=== PATIENT | female | born 1960 | race African-American/Black ===

== ENCOUNTER 2016-09-30 12:19 | Emergency (ER) | payer MEDICARE, MEDICAID ==
[~2016-09-30] VITALS: Ht 170.2 cm; Wt 85.6 kg
[~2016-09-30 12:19] MED LIST: FOLIC ACID1 MG PO; NAPROSYN500 MG PO; RHEUMATREX2.5 M1 PO; TEGRETOL OR; TOPAMAX100 MG OR; VITAMIN D31000 UNI1 PO
[2016-09-30 13:45] LABS: HEMATOCRIT 39.8 % (37.0-47.0); HEMOGLOBIN 12.2 g/dl (12.0-16.0); IMMATURE GRANULOCYTES 0.3 % (0.0-1.0); MEAN CELL VOLUME 93.9 fL CALC (80.0-100.0); MEAN CORPUSCULAR HGB 28.8 pG CALC (26.0-32.0); MEAN CORPUSCULAR HGB CONC 30.7 g/L CALC (32.0-36.0); NEUT# 5.03 thou/uL (2.00-7.15); RED BLOOD COUNT 4.24 mill/uL (4.20-5.60)
[2016-09-30 14:01] LABS: ALBUMIN 4.3 g/dL (3.2-5.0); ALKALINE PHOSPHATASE 78 u/l (38-126); ANION GAP 14 (6-22 (CALC)); BILIRUBIN, TOTAL 0.4 mg/dL (0.0-1.4); BUN 16 mg/dL (7-17); BUN/CREATININE RATIO 20 (12-20 (CALC)); CARBON DIOXIDE 23 mmol/l (22-30); CHLORIDE 111 mmol/l (95-108); CREATININE 0.8 mg/dL (0.5-1.0); GFR > 60 ML/MIN (>=60 (CALC)); GFR FOR AFR.AMER. > 60 ML/MIN (>=60 (CALC)); GLUCOSE 121 mg/dL (65-105); POTASSIUM 3.7 mmol/l (3.5-5.1); SGOT/AST 34 u/l (14-36); SGPT/ALT 48 u/l (9-52); SODIUM 144 mmol/l (137-146); TOTAL PROTEIN 7.8 g/dL (6.3-8.2)
[2016-09-30 14:18] LABS: MYOGLOBIN 91 ng/mL (0 - 62)
[2016-09-30 14:53] VITALS: BP 129/79
== END 2016-09-30 14:53 | disposition home or self-care (01) ==
LOC: ED 12:19
PROVIDERS: Emergency Medicine
PROC: 2W25X4Z Dressing of Back using Bandage (ICD-10-PCS; principal; 2016-09-30)
PROC: 2W2PX4Z Dressing of Left Upper Leg using Bandage (ICD-10-PCS; 2016-09-30)
DX: G40.909 Epilepsy, unspecified, not intractable, without status epilepticus (principal); T21.25XA Burn of second degree of buttock, initial encounter; X10.2XXA Contact with fats and cooking oils, initial encounter; Y93.G3 Activity, cooking and baking; Y92.000 Kitchen of unspecified non-institutional (private) residence as the place of occurrence of the external cause; R42 Dizziness and giddiness

== ENCOUNTER 2017-01-10 17:50 | Emergency (ER) | payer MEDICARE, MEDICAID ==
[~2017-01-10] VITALS: Ht 170.2 cm; Wt 86.0 kg
[2017-01-10 19:47] LABS: HEMATOCRIT 38.4 % (37.0-47.0); HEMOGLOBIN 11.8 g/dl (12.0-16.0); IMMATURE GRANULOCYTES 0.2 % (0.0-1.0); MEAN CELL VOLUME 92.5 fL CALC (80.0-100.0); MEAN CORPUSCULAR HGB 28.4 pG CALC (26.0-32.0); MEAN CORPUSCULAR HGB CONC 30.7 g/L CALC (32.0-36.0); NEUT# 3.68 thou/uL (2.00-7.15); RED BLOOD COUNT 4.15 mill/uL (4.20-5.60); RED CELL DISTRI WIDTH 14.7 % (11.5-15.5)
[2017-01-10 19:53] LABS: BARBITURATES NEGATIVE (NEGATIVE); COCAINE NEGATIVE (NEGATIVE); METHADONE NEGATIVE (NEGATIVE); OXCYCODONE NEGATIVE (NEGATIVE); TETRAHYDROCANNABIONOL NEGATIVE (NEGATIVE); TRICYLIC ANTIDEPRESSANTS NEGATIVE (NEGATIVE)
[2017-01-10 20:05] LABS: ALBUMIN 4.4 g/dL (3.2-5.0); ALKALINE PHOSPHATASE 80 u/l (38-126); ANION GAP 14 (6-22 (CALC)); BILIRUBIN, TOTAL 0.4 mg/dL (0.0-1.4); BUN 17 mg/dL (7-17); BUN/CREATININE RATIO 19 (12-20 (CALC)); CALCIUM 9.6 mg/dL (8.4-10.2); CARBON DIOXIDE 21 mmol/l (22-30); CHLORIDE 113 mmol/l (95-108); CREATININE 0.9 mg/dL (0.5-1.0); ETHYL ALCOHOL 0 mg/dl (0-30); GFR > 60 ML/MIN (>=60 (CALC)); GFR FOR AFR.AMER. > 60 ML/MIN (>=60 (CALC)); GLUCOSE 108 mg/dL (65-105); POTASSIUM 4.2 mmol/l (3.5-5.1); SGOT/AST 24 u/l (14-36); SGPT/ALT 33 u/l (9-52); SODIUM 144 mmol/l (137-146)
[2017-01-10 20:28] VITALS: BP 120/70
== END 2017-01-10 20:38 | disposition home or self-care (01) ==
LOC: ED 17:50
PROVIDERS: Emergency Medicine
DX: G40.409 Other generalized epilepsy and epileptic syndromes, not intractable, without status epilepticus (principal); M25.561 Pain in right knee

== ENCOUNTER 2017-06-20 07:35 | Emergency (ER) | payer MEDICARE, MEDICAID ==
[~2017-06-20] VITALS: Ht 170.2 cm; Wt 100.0 kg
[~2017-06-20 07:35] MED LIST changes: +ARAVA10 MG PO; +CALCIUM + D PO; +OXCARBAZEPINE300 MG PO; +PROLIA60 MG/ML SC
[2017-06-20 08:33] LABS: HEMATOCRIT 38.6 % (37.0-47.0); IMMATURE GRANULOCYTES 1.3 % (0.0-1.0); MEAN CELL VOLUME 93.5 fL CALC (80.0-100.0); MEAN CORPUSCULAR HGB 29.1 pG CALC (26.0-32.0); MEAN CORPUSCULAR HGB CONC 31.1 g/L CALC (32.0-36.0); NEUT# 4.56 thou/uL (2.00-7.15); RED BLOOD COUNT 4.13 mill/uL (4.20-5.60); RED CELL DISTRI WIDTH 15.2 % (11.5-15.5)
[2017-06-20 09:53] LABS: BUN 17 mg/dL (7-17); BUN/CREATININE RATIO 21 (12-20 (CALC)); CHLORIDE 107 mmol/l (95-108); CREATININE 0.8 mg/dL (0.5-1.0); GFR > 60 ML/MIN (>=60 (CALC)); GFR FOR AFR.AMER. > 60 ML/MIN (>=60 (CALC)); POTASSIUM 3.5 mmol/l (3.5-5.1); SODIUM 145 mmol/l (137-146)
[2017-06-20 09:57] LABS: ANION GAP 13 (6-22 (CALC)); CARBON DIOXIDE 29 mmol/l (22-30)
[2017-06-20 11:18] LABS: URINE BACTERIA MANY hpf; URINE BILIRUBIN - DIPSTICK NEGATIVE (NEGATIVE); URINE BLOOD DIPSTICK NEGATIVE (NEGATIVE); URINE CLARITY CLOUDY; URINE COLOR YELLOW; URINE EPITHELIAL CELLS MODERATE EPI/hpf (0-FEW); URINE GLUCOSE - DIPSTICK NEGATIVE (NEGATIVE); URINE KETONE NEGATIVE (NEGATIVE); URINE LEUK ESTERASE SMALL (NEGATIVE); URINE NITRITE - DIPSTICK POSITIVE (Negative); URINE PH 6.5 (4.5-8.0); URINE PROTEIN - DIPSTICK NEGATIVE (NEG-TRACE); URINE UROBILINOGEN - DIPSTICK 0.2 E.U./dL (0.2)
[2017-06-20 13:17] VITALS: BP 132/61
== END 2017-06-20 13:17 | disposition short-term general hospital (02) ==
LOC: ED 07:35
PROVIDERS: Family Medicine
PROC: 0HQ1XZZ Repair Face Skin, External Approach (ICD-10-PCS; principal; 2017-06-20)
DX: G93.89 Other specified disorders of brain (principal); G40.909 Epilepsy, unspecified, not intractable, without status epilepticus; S01.81XA Laceration without foreign body of other part of head, initial encounter; B96.20 Unspecified Escherichia coli [E. coli] as the cause of diseases classified elsewhere; Y93.E1 Activity, personal bathing and showering; Y92.002 Bathroom of unspecified non-institutional (private) residence as the place of occurrence of the external cause

== ENCOUNTER 2017-12-25 15:17 | Emergency (ER) | payer MEDICARE, MEDICAID ==
[~2017-12-25] VITALS: Ht 170.2 cm; Wt 84.0 kg
[~2017-12-25 15:17] MED LIST changes: +KEPPRA750 M2 PO
[2017-12-25 16:31] LABS: HEMATOCRIT 33.8 % (37.0-47.0); HEMOGLOBIN 10.3 g/dl (12.0-16.0); IMMATURE GRANULOCYTES 0.3 % (0.0-5.0); MEAN CELL VOLUME 89.7 fL CALC (80.0-100.0); MEAN CORPUSCULAR HGB 27.3 pG CALC (26.0-32.0); MEAN CORPUSCULAR HGB CONC 30.5 g/L CALC (32.0-36.0); NEUT# 1.93 thou/uL (2.00-7.15); RED BLOOD COUNT 3.77 mill/uL (4.20-5.60); RED CELL DISTRI WIDTH 15.9 % (11.5-15.5)
[2017-12-25 16:50] LABS: ALBUMIN 3.7 g/dL (3.2-5.0); ALKALINE PHOSPHATASE 96 u/l (38-126); ANION GAP 12 (6-22 (CALC)); BILIRUBIN, TOTAL 0.3 mg/dL (0.0-1.4); BUN 16 mg/dL (7-17); BUN/CREATININE RATIO 23 (12-20 (CALC)); CARBON DIOXIDE 22 mmol/l (22-30); CHLORIDE 112 mmol/l (95-108); CREATININE 0.7 mg/dL (0.5-1.0); GFR > 60 ML/MIN (>=60 (CALC)); GFR FOR AFR.AMER. > 60 ML/MIN (>=60 (CALC)); POTASSIUM 3.3 mmol/l (3.5-5.1); SODIUM 143 mmol/l (137-146); TOTAL PROTEIN 7.2 g/dL (6.3-8.2)
[2017-12-25 17:02] LABS: MYOGLOBIN 34 ng/mL (0 - 62)
[2017-12-25 17:11] LABS: SGOT/AST 32 u/l (14-36)
[2017-12-25 17:29] VITALS: BP 141/77
== END 2017-12-25 17:39 | disposition home or self-care (01) ==
LOC: ED 15:17
PROVIDERS: Emergency Medicine
DX: G40.109 Localization-related (focal) (partial) symptomatic epilepsy and epileptic syndromes with simple partial seizures, not intractable, without status epilepticus (principal); M06.9 Rheumatoid arthritis, unspecified; Z86.011 Personal history of benign neoplasm of the brain

== ENCOUNTER 2018-05-25 09:21 | Outpatient (REF) | payer MEDICARE, MEDICAID ==
[~2018-05-25] VITALS: Ht 170.2 cm; Wt 77.1 kg
== END 2018-05-25 09:56 | disposition home or self-care (01) ==
LOC: INF 09:21
PROVIDERS: ATTEND Internal Medicine
DX: M81.8 Other osteoporosis without current pathological fracture (principal); R70.0 Elevated erythrocyte sedimentation rate; R79.82 Elevated C-reactive protein (CRP); M06.09 Rheumatoid arthritis without rheumatoid factor, multiple sites
CPT/HCPCS: J0897

== ENCOUNTER 2018-09-08 12:09 | Emergency (ER) | payer MEDICARE, MEDICAID ==
[~2018-09-08] VITALS: Ht 170.2 cm; Wt 80.0 kg
[2018-09-08 13:38] LABS: HEMATOCRIT 39.1 % (37.0-47.0); IMMATURE GRANULOCYTES 0.3 % (0.0-5.0); MEAN CELL VOLUME 93.1 fL CALC (80.0-100.0); MEAN CORPUSCULAR HGB 28.6 pG CALC (26.0-32.0); MEAN CORPUSCULAR HGB CONC 30.7 g/L CALC (32.0-36.0); NEUT# 2.17 thou/uL (2.00-7.15); RED BLOOD COUNT 4.2 mill/uL (4.20-5.60); RED CELL DISTRI WIDTH 13.5 % (11.5-15.5)
[2018-09-08 13:39] LABS: URINE BILIRUBIN - DIPSTICK NEGATIVE (NEGATIVE); URINE BLOOD DIPSTICK TRACE-INTACT (NEGATIVE); URINE COLOR YELLOW; URINE EPITHELIAL CELLS MODERATE EPI/hpf (0-FEW); URINE GLUCOSE - DIPSTICK NEGATIVE (NEGATIVE); URINE KETONE NEGATIVE (NEGATIVE); URINE LEUK ESTERASE NEGATIVE (NEGATIVE); URINE NITRITE - DIPSTICK POSITIVE (Negative); URINE PROTEIN - DIPSTICK TRACE mg/dL (NEG-TRACE); URINE RBC 0-2 RBC/hpf (0-5); URINE UROBILINOGEN - DIPSTICK 0.2 E.U./dL (0.2)
[2018-09-08 13:40] LABS: URINE BACTERIA MANY hpf
[2018-09-08 13:50] LABS: ALBUMIN 4.2 g/dL (3.2-5.0); ALKALINE PHOSPHATASE 106 u/l (38-126); BUN 9 mg/dL (7-17); BUN/CREATININE RATIO 13 (12-20 (CALC)); CHLORIDE 105 mmol/l (95-108); CREATININE 0.7 mg/dL (0.5-1.0); GFR > 60 ML/MIN (>=60 (CALC)); GFR FOR AFR.AMER. > 60 ML/MIN (>=60 (CALC)); MAGNESIUM 1.6 mg/dL (1.6-2.3); POTASSIUM 3.6 mmol/l (3.5-5.1); SGOT/AST 44 u/l (14-36); SODIUM 142 mmol/l (137-146); TOTAL PROTEIN 7.5 g/dL (6.3-8.2)
[2018-09-08 13:51] LABS: ANION GAP 11 (6-22 (CALC)); BILIRUBIN, TOTAL 0.5 mg/dL (0.0-1.4); CARBON DIOXIDE 30 mmol/l (22-30)
[2018-09-08] MEDS ORDERED: KEFLEX500 M1 PO (14:44)
[2018-09-08 14:47] VITALS: BP 130/59
== END 2018-09-08 14:56 | disposition home or self-care (01) ==
LOC: ED 12:09
DX: N39.0 Urinary tract infection, site not specified (principal); G40.909 Epilepsy, unspecified, not intractable, without status epilepticus; M06.9 Rheumatoid arthritis, unspecified; B96.20 Unspecified Escherichia coli [E. coli] as the cause of diseases classified elsewhere; Z87.898 Personal history of other specified conditions

== ENCOUNTER 2018-11-21 09:08 | Emergency (ER) | payer MEDICARE, MEDICAID ==
[~2018-11-21] VITALS: Ht 170.2 cm; Wt 80.0 kg
[~2018-11-21 09:08] MED LIST changes: +KEFLEX500 M1 PO
[2018-11-21 12:11] LABS: HEMATOCRIT 36.5 % (37.0-47.0); HEMOGLOBIN 11.4 g/dl (12.0-16.0); MEAN CELL VOLUME 91.5 fL CALC (80.0-100.0); MEAN CORPUSCULAR HGB 28.6 pG CALC (26.0-32.0); MEAN CORPUSCULAR HGB CONC 31.2 g/L CALC (32.0-36.0); NEUT# 1.78 thou/uL (2.00-7.15); RED BLOOD COUNT 3.99 mill/uL (4.20-5.60)
[2018-11-21 12:25] LABS: ANION GAP 10 (6-22 (CALC)); BUN 13 mg/dL (7-17); BUN/CREATININE RATIO 19 (12-20 (CALC)); CARBON DIOXIDE 30 mmol/l (22-30); CHLORIDE 106 mmol/l (95-108); CREATININE 0.7 mg/dL (0.5-1.0); GFR > 60 ML/MIN (>=60 (CALC)); GFR FOR AFR.AMER. > 60 ML/MIN (>=60 (CALC)); POTASSIUM 3.7 mmol/l (3.5-5.1); SODIUM 142 mmol/l (137-146)
[2018-11-21 13:03] VITALS: BP 123/58
== END 2018-11-21 13:07 | disposition home or self-care (01) ==
LOC: ED 09:08
PROVIDERS: Family Medicine
DX: M62.838 Other muscle spasm (principal); M06.9 Rheumatoid arthritis, unspecified; G40.909 Epilepsy, unspecified, not intractable, without status epilepticus

== ENCOUNTER 2019-02-26 15:36 | Observation (INO) | payer MEDICARE, MEDICAID ==
[~2019-02-26] VITALS: Ht 170.2 cm; Wt 86.8 kg
--- NOTE | 2019-02-26 15:51 | NUR ---
PT TO ROOM WITH STEADY GAIT
--- NOTE | 2019-02-26 16:00 | NUR ---
PT STATES HE FELL AT HOME, UNSURE / UNABLE TO REMEMBER IF THERE WAS LOC, SATETS HE WAS CONFUSED TOOK A NAP THEN CAME IN, ALSO STATES HSE HAS PERIODS OF CONFUSION WHEN SHE HAS A UTI, COMFORT MEASURES PROVIDED, PT IS ALERT ADN ORIENTED, VISITOR AT BEDSIDE
[2019-02-26 16:42] LABS: URINE BILIRUBIN - DIPSTICK NEGATIVE (NEGATIVE); URINE BLOOD DIPSTICK SMALL (NEGATIVE); URINE COLOR YELLOW; URINE GLUCOSE - DIPSTICK NEGATIVE (NEGATIVE); URINE KETONE NEGATIVE (NEGATIVE); URINE PROTEIN - DIPSTICK 30 mg/dL (NEG-TRACE); URINE SPECIFIC GRAVITY 1.025; URINE UROBILINOGEN - DIPSTICK 0.2 E.U./dL (0.2)
[2019-02-26 16:42] LABS: HEMATOCRIT 34.2 % (37.0-47.0); HEMOGLOBIN 10.7 g/dl (12.0-16.0); IMMATURE GRANULOCYTES 0.3 % (0.0-5.0); MEAN CELL VOLUME 92.2 fL CALC (80.0-100.0); MEAN CORPUSCULAR HGB 28.8 pG CALC (26.0-32.0); MEAN CORPUSCULAR HGB CONC 31.3 g/L CALC (32.0-36.0); NEUT# 2.34 thou/uL (2.00-7.15); RED BLOOD COUNT 3.71 mill/uL (4.20-5.60); RED CELL DISTRI WIDTH 13.8 % (11.5-15.5)
[2019-02-26 16:44] LABS: URINE LEUK ESTERASE SMALL (NEGATIVE); URINE NITRITE - DIPSTICK POSITIVE (Negative)
[2019-02-26 16:46] LABS: URINE BACTERIA FEW hpf; URINE SQUAMOUS EPITHELIAL CELL FEW EPI/hpf (0-FEW)
--- NOTE | 2019-02-26 16:50 | NUR ---
PT RESTING VISITOR REMAINS AT [facility], OFFERS NO NEW COMPLAINTS, CALL FELIX WITHIN REACH.
[2019-02-26 17:05] LABS: ANION GAP 8 (6-22 (CALC)); BUN 9 mg/dL (7-17); BUN/CREATININE RATIO 14 (12-20 (CALC)); CARBON DIOXIDE 28 mmol/l (22-30); CHLORIDE 109 mmol/l (95-108); CREATININE 0.7 mg/dL (0.5-1.0); GFR > 60 ML/MIN (>=60 (CALC)); GFR FOR AFR.AMER. > 60 ML/MIN (>=60 (CALC)); POTASSIUM 3.5 mmol/l (3.5-5.1); SODIUM 142 mmol/l (137-146)
--- NOTE | 2019-02-26 18:00 | NUR ---
UNABLE TO FLUSH HL LT AC.IV REMOVED, FREE FROM REDNES SOR INFLAMMATION. ATTEMPTED IV STICK X1 TO RT AC UNSUCCESSFUL. PT TOLERATED WELL. PT AGREEABLE TO ADMIT
[2019-02-26] MEDS ORDERED: VIMPAT200 MG PO (18:19)
[2019-02-26] MEDS ORDERED: LEFLUNOMIDE20 MG PO (18:21)
[2019-02-26] MEDS ORDERED: PROLIA60 MG/ML SC (18:23)
--- NOTE | 2019-02-26 18:24 | NUR ---
V ACCESS OBTAINED IN R AC 20G PT TOLERATED WELL IV ABT TO INFUSE ORDERED
--- NOTE | 2019-02-26 18:51 | NUR ---
REPORT CALLED TO IDA HINKLE ON MED SURG.
--- NOTE | 2019-02-26 18:59 | NUR ---
PT TRANSPORTED TO MED SURG VIA STRETCHER, ON TELE, ALL BELONGING SENT WITH PT.
--- NOTE | 2019-02-26 20:19 | NUR ---
PT ARRIVED TO UNIT VIA BED WITH [facility] STAFF; ADMITTED INTO BED 7. SISTER AT BEDSIDE. ALERT AND ORIENTED. DENIES PAIN. RESPIORATIONS EVEN AND UNLABORED ON ROOM AIR AND DENIES SOB. ADMISSION ASSESSMENT COMPLETED AT THIS TIME; LUNGS ARE CLEAR; VSS; TRACE EDEMA. ORIENTED TO ROOM AND CALL LIGHT SYSTEM. PLAN OF CARE DISCUSSED. PT ENCOURAGED TO VERBALIZE CONCERNS. STATES UNDERSTANDING. SAFETY MEAURES IN PLACE. CALL LIGHT WITHIN REACH.
[2019-02-26 20:20] VITALS: BP 131/69
[2019-02-26 20:30] VITALS: BP 131/69
--- NOTE | 2019-02-26 20:51 | NUR ---
WATER PROVIDED AND MEDS SENT HOME WITH SISTER.
--- NOTE | 2019-02-26 21:51 | NUR ---
PT RESTING WITH EYES CLOSED AND NO SIGNS OF DISTRESS. PLACED ON SEIZURE PRECAUTIONS FOR HX OF SEIZURES AND SIDE RAILS PADDED. PT REQUESTS [place] FREE BEVERAGE.
[2019-02-26 23:46] VITALS: BP 130/60
--- NOTE | 2019-02-27 00:05 | NUR ---
IV FLUIDS INITIATED AND PT EDUCATED ON NEW MEDICATIONS INCLUDING LOVENOX. VSS. PT AWAKE AND RESTING IN SEMI FOWLERS WATCHING TV. CONTINUES TO DENY PAIN. RESPIRATIONS EVEN AND UNLABORED ON ROOM AIR. UP TO BSC TO VOID 225ML OF CLOUDY PALE YELLOW URINE. SAFETY MEASURES IN PLACE INCLUDING FALL PRECAUTIONS. CALL LIGHT WITHIN REACH.
[2019-02-27 05:00] VITALS: BP 127/58
[2019-02-27 05:07] LABS: HEMATOCRIT 35.3 % (37.0-47.0); HEMOGLOBIN 11.3 g/dl (12.0-16.0); IMMATURE GRANULOCYTES 0.2 % (0.0-5.0); MEAN CORPUSCULAR HGB 27.5 pG CALC (26.0-32.0); NEUT# 3.08 thou/uL (2.00-7.15); RED BLOOD COUNT 4.11 mill/uL (4.20-5.60); RED CELL DISTRI WIDTH 13.2 % (11.5-15.5)
[2019-02-27 05:12] LABS: MEAN CELL VOLUME 85.9 fL CALC (80.0-100.0)
[2019-02-27 05:34] LABS: ALBUMIN 3.4 g/dL (3.2-5.0); BILIRUBIN, TOTAL 0.4 mg/dL (0.0-1.4); CREATININE 1.3 mg/dL (0.5-1.0); TOTAL PROTEIN 6.3 g/dL (6.3-8.2)
[2019-02-27 05:45] LABS: POTASSIUM 4.6 mmol/l (3.5-5.1)
--- NOTE | 2019-02-27 06:45 | NUR ---
RECIEVED REPORT FROM ARIN AMATO. ASSUMED PT CARE.
--- NOTE | 2019-02-27 08:00 | NUR ---
PT A&OX4, ABLE TO MAKE NEEDS KNOWN. RESPIRATIONS EVEN/UNLABORED, LS CLEAR THROUGHOUT. [id number]. ABDOMEN SOFT/ NON TENDER. PT REFUSED BREAKFAST TRAY , REQUESTED EXTRA TATUM. REQUEST GRANTED. PT OFFERS NO COMPLAINTS AT THIS TIME. CALL LIGHT IN REACH. WILL MONITOR.
--- NOTE | 2019-02-27 09:48 | NUR ---
REPORT GIVEN TO ARIN RAGLAND. FAMILY AT BEDSIDE.
[2019-02-27] MEDS ORDERED: VIMPAT100 MG PO (09:50)
--- NOTE | 2019-02-27 09:50 | NUR ---
RECEVIED FROM ICU INTO ROOM 261 VIA WC. PATIENT IS ALERT AND ORIENTED. RESP NON-LABORED. LUNGS CLEAR. NO COMPLAINTS OF ANY PAIN OR DISCOMFORTS. SALINE LOCK IN RAC, SITE BENIGN. DISCUSSED PLAN OF CARE. ORIENTED TO SURROUNDINGS. CALL FELIX IN REACH.
--- NOTE | 2019-02-27 09:50 | NUR ---
PT TRANSPORTED TO MS2 ROOM 261
[2019-02-27] MEDS ORDERED: BACTRIM DS1 TAB PO (09:51)
[2019-02-27 10:00] VITALS: BP 140/69
--- NOTE | 2019-02-27 12:00 | NUR ---
SITTING UP IN BED, EATING LUNCH. NO C/O VOICED.
[2019-02-27 15:40] VITALS: BP 129/73
--- NOTE | 2019-02-27 16:00 | NUR ---
FAMILY IN TO VISIT. PATIENT UP TO BR A FEW TIMES THIS SHIFT, AMBULATES WITH STABLE STANCE AND STEADY GAIT.
[2019-02-27 18:45] VITALS: BP 143/72
--- NOTE | 2019-02-27 18:55 | NUR ---
REPORT RECEIVED FROM ARIN DOYLE. PT RESTING IN BED. FAMILY AT BEDSIDE. SAFETY PRECAUTIONS IN PLACE. WILL CONTINUE TO MONITOR.
--- NOTE | 2019-02-27 20:20 | NUR ---
PT REFUSING TO TAKE KEPPRA FROM HOSPITAL, STATING "I CAN'T TAKE GENERIC MEDICATIONS, I WILL TAKE MY MEDS FROM HOME." EDUCATED PT ON MEDICATION SAFETY IN THE HOSPITAL. MD MADE AWARE OF PT DESIRE TO TAKE HOME MEDS AND BEING UNABLE TO TAKE GENERIC. MD ORDERS PROVIDED, PT MAY TAKE OWN MEDS WITHOUT PHARMACY VERIFICATION. KEPPRA 750MG, VAMPAT 100MG, LEFLUNOMIDE 20 MG. MEDS TO BE SENT TO PHARMACY IN THE AM FOR VERIFICATION. SAFETY PRECAUTIONS IN PLACE. WILL CONTINUE TO MONITOR.
[2019-02-27 23:30] VITALS: BP 123/70
--- NOTE | 2019-02-28 00:30 | NUR ---
PT RESTING IN BED. TELE IN PLACE. RESPIRATIONS EVEN AND UNLABORED. CALL FELIX WITHIN REACH. WILL CONTINUE TO MONITOR.
[2019-02-28 03:34] VITALS: BP 137/75
--- NOTE | 2019-02-28 04:31 | NUR ---
PT RESTING IN BED. NO S/S OF DISTRESS AT THIS TIME. TELE IN PLACE. CALL FELIX WITHIN REACH. WILL CONTINUE TO MONTIOR.
[2019-02-28 05:19] LABS: HEMATOCRIT 36.3 % (37.0-47.0); HEMOGLOBIN 11.1 g/dl (12.0-16.0); IMMATURE GRANULOCYTES 0.4 % (0.0-5.0); MEAN CORPUSCULAR HGB 28.4 pG CALC (26.0-32.0); MEAN CORPUSCULAR HGB CONC 30.6 g/L CALC (32.0-36.0); NEUT# 1.3 thou/uL (2.00-7.15); RED BLOOD COUNT 3.91 mill/uL (4.20-5.60); RED CELL DISTRI WIDTH 13.9 % (11.5-15.5)
[2019-02-28 05:30] LABS: MEAN CELL VOLUME 92.8 fL CALC (80.0-100.0)
[2019-02-28 05:37] LABS: ANION GAP 9 (6-22 (CALC)); BUN 7 mg/dL (7-17); BUN/CREATININE RATIO 13 (12-20 (CALC)); CARBON DIOXIDE 24 mmol/l (22-30); CHLORIDE 113 mmol/l (95-108); CREATININE 0.5 mg/dL (0.5-1.0); GFR > 60 ML/MIN (>=60 (CALC)); GFR FOR AFR.AMER. > 60 ML/MIN (>=60 (CALC)); POTASSIUM 4.1 mmol/l (3.5-5.1); SODIUM 141 mmol/l (137-146)
[2019-02-28 07:35] VITALS: BP 141/79; BP 149/81
--- NOTE | 2019-02-28 07:35 | NUR ---
AWAKE ON ROUNDS. RESTING IN BED. DENIES ANY PAIN OR DISCOMFORTS. RESP NON-LABORED. LUNGS CLEAR. IV IN LFA WITH NS INFUSING AT 100 ML/HR. IV SITE HEALTHY. DISCUSSED PLAN OF CARE. NO NEEDS IDENTIFIED AT THIS TIME. CALL FELIX IN REACH.
[2019-02-28 10:53] VITALS: BP 132/74
--- NOTE | 2019-02-28 11:43 | NUR ---
RESTING WITHOUT COMPLAINTS. USES BR TO VOID. DENIES BURNING OR PAIN WITH URINATION.
[2019-02-28 15:40] VITALS: BP 128/71
--- NOTE | 2019-02-28 16:00 | NUR ---
PATIENT TOOK SHOWER. AWAITING DISCHARGE. SALINE LOCK AND TELEMETRY DC'D.
[2019-02-28] MEDS ORDERED: BACTRIM DS1 TAB PO (16:31)
--- NOTE | 2019-02-28 17:08 | NUR ---
Discharge instructions given. Patient verbalizes understanding of same. Discharged in stable condition via Wheelchair to Home with family. All belongings sent with pt.
== END 2019-02-28 17:08 | disposition home or self-care (01) ==
LOC: ED 15:36 → ED-I 17:39 → ED 17:53 → MS2 17:54 → ICU 20:00 → MS2 02-27 09:59
PROVIDERS: Family Medicine; Nurse Practitioner Family; ADMIT Internal Medicine; ATTEND Internal Medicine
DX: R55 Syncope and collapse (principal); N39.0 Urinary tract infection, site not specified; E86.0 Dehydration; B96.20 Unspecified Escherichia coli [E. coli] as the cause of diseases classified elsewhere; G40.209 Localization-related (focal) (partial) symptomatic epilepsy and epileptic syndromes with complex partial seizures, not intractable, without status epilepticus; M06.9 Rheumatoid arthritis, unspecified; Z86.011 Personal history of benign neoplasm of the brain
CPT/HCPCS: G0378; J1650

== ENCOUNTER 2020-09-18 06:45 | Day surgery (SDC) | payer MEDICARE, MEDICAID ==
[~2020-09-18 06:45] MED LIST changes: +ACTEMRA400 MG/20 IV; +BACTRIM DS1 TAB PO; +LEFLUNOMIDE20 MG PO; +VIMPAT100 MG PO; +VIMPAT200 MG PO
[2020-09-18 09:38] VITALS: BP 139/57
--- NOTE | 2020-09-18 15:40 | NUR ---
PER PHYSICIAN, NOTIFIED PATIEND OF PROCEDURE FINDINGS AND PATIENT AGREED WITH INFORMATION GIVEN. STATES AT HOME, DOING WELL, RESTING, AND TOLERATED PROCEDURE WELL. PATIENT TO REPEAT COLONOSCOPY X 10 YEARS OR SOONER IF NEEDED. FOLLOW UP WITH PRIMARY CARE FOR CONTINUITY OF CARE.
== END 2020-09-18 10:15 | disposition home or self-care (01) ==
LOC: ENDO 06:45
PROVIDERS: ATTEND Surgery
PROC: 0DJD8ZZ Inspection of Lower Intestinal Tract, Via Natural or Artificial Opening Endoscopic (ICD-10-PCS; principal; 2020-09-18)
DX: Z12.11 Encounter for screening for malignant neoplasm of colon (principal)

== ENCOUNTER 2021-09-16 06:45 | Emergency (ER) | payer MEDICARE, MEDICAID ==
[~2021-09-16] VITALS: Ht 170.2 cm; Wt 86.8 kg
[2021-09-16] VITALS (8 sets, daily range): BP systolic 127–157; BP diastolic 64–108
[2021-09-16] MEDS ORDERED: NAPROXEN500 MG PO (08:49)
[2021-09-16] MEDS ORDERED: CYCLOBENZAPRINE10 MG PO (08:49)
== END 2021-09-16 09:05 | disposition home or self-care (01) ==
LOC: ED 06:45
DX: M54.42 Lumbago with sciatica, left side (principal); G40.909 Epilepsy, unspecified, not intractable, without status epilepticus; M06.9 Rheumatoid arthritis, unspecified

== ENCOUNTER 2022-09-14 10:35 | Emergency (ER) | payer MEDICARE, MEDICAID ==
[~2022-09-14] VITALS: Ht 170.2 cm; Wt 88.5 kg
[~2022-09-14 10:35] MED LIST changes: +CYCLOBENZAPRINE10 MG PO; +NAPROXEN500 MG PO
[2022-09-14 10:38] VITALS: BP 170/86
[2022-09-14 10:57] LABS: BASO% 0.5 % (0-3); EOS% 1.6 % (0-8); HEMATOCRIT 41.8 % (37.0-47.0); HEMOGLOBIN 12.7 g/dl (12.0-16.0); IMMATURE GRANULOCYTES 0.5 % (0.0-5.0); LYMPH% 41.7 % (15-41); MEAN CELL VOLUME 93.1 fL CALC (80.0-100.0); MEAN CORPUSCULAR HGB 28.3 pG CALC (26.0-32.0); MEAN CORPUSCULAR HGB CONC 30.4 g/dL CAL (32.0-36.0); MONO% 16.1 % (2-13); NEUT# 0.76 thou/uL (2.00-7.15); NEUT% 39.6 % (42-76); RED BLOOD COUNT 4.49 mill/uL (4.20-5.60); RED CELL DISTRI WIDTH 12.2 % (11.5-15.5)
[2022-09-14 11:07] LABS: ALBUMIN 4.1 g/dL (3.2-5.0); ALKALINE PHOSPHATASE 125 u/l (38-126); ANION GAP 9 (6-22 (CALC)); BUN 12 mg/dL (7-17); BUN/CREATININE RATIO 15 (12-20 (CALC)); CARBON DIOXIDE 29 mmol/l (22-30); CHLORIDE 107 mmol/l (95-108); CREATININE 0.8 mg/dL (0.5-1.0); GFR FOR AFR.AMER. > 60 ML/MIN (>=60 (CALC)); GFR OTHER RACES > 60 ML/MIN (>=60 (CALC)); SGOT/AST 37 u/l (14-36); SODIUM 141 mmol/l (137-146); TOTAL PROTEIN 6.9 g/dL (6.3-8.2)
[2022-09-14 11:09] LABS: BILIRUBIN, TOTAL 0.6 mg/dL (0.02-1.3)
[2022-09-14 11:13] VITALS: BP 147/75
[2022-09-14 11:24] VITALS: BP 147/75
== END 2022-09-14 11:48 | disposition home or self-care (01) ==
LOC: ED 11:40
PROVIDERS: Family Medicine
DX: G40.909 Epilepsy, unspecified, not intractable, without status epilepticus (principal); M06.9 Rheumatoid arthritis, unspecified

== ENCOUNTER 2023-04-21 12:13 | Observation (INO) | payer MEDICARE, MEDICAID ==
[2023-04-21] VITALS (8 sets, daily range): BP systolic 136–171; BP diastolic 77–120
[~2023-04-21] VITALS: Ht 170.2 cm; Wt 90.2 kg
--- NOTE | 2023-04-21 12:17 | NUR ---
PT ARRIVED VIA EMS. PT PLACED IN ER ROOM 15. PROVIDER NOTIFIED.
[2023-04-21 12:50] LABS: BASO% 0.2 % (0-3); EOS% 0.2 % (0-8); HEMATOCRIT 39.8 % (37.0-47.0); HEMOGLOBIN 12.4 g/dl (12.0-16.0); IMMATURE GRANULOCYTES 0.3 % (0.0-5.0); LYMPH% 3.5 % (15-41); MEAN CELL VOLUME 94.5 fL CALC (80.0-100.0); MEAN CORPUSCULAR HGB 29.5 pG CALC (26.0-32.0); MEAN CORPUSCULAR HGB CONC 31.2 g/dL CAL (32.0-36.0); NEUT# 5.97 thou/uL (2.00-7.15); NEUT% 89.8 % (42-76); RED BLOOD COUNT 4.21 mill/uL (4.20-5.60); RED CELL DISTRI WIDTH 12.7 % (11.5-15.5)
[2023-04-21] MEDS ORDERED: IPRATROPIUM-Albuterol 0.5MG-2.5MG/3 ML NEB ONE (13:10)
[2023-04-21] MEDS ORDERED: ACETAMINOPHEN 325 MG/TAB PO ONE (13:15)
[2023-04-21 13:26] LABS: ALBUMIN 4.5 g/dL (3.2-5.0); ALKALINE PHOSPHATASE 140 u/l (38-126); ANION GAP 8 (6-22 (CALC)); BILIRUBIN, TOTAL 0.6 mg/dL (0.02-1.3); BUN 8 mg/dL (8-23); BUN/CREATININE RATIO 12 (12-20 (CALC)); CARBON DIOXIDE 29 mmol/l (22-30); CHLORIDE 104 mmol/l (95-108); CREATININE 0.6 mg/dL (0.5-1.0); GFR FOR AFR.AMER. > 60 ML/MIN (>=60 (CALC)); GFR OTHER RACES > 60 ML/MIN (>=60 (CALC)); POTASSIUM 3.8 mmol/l (3.5-5.1); SGOT/AST 35 u/l (9-36); SODIUM 138 mmol/l (137-146); TOTAL PROTEIN 7.7 g/dL (6.3-8.2)
--- NOTE | 2023-04-21 13:33 | NUR ---
PT RESTING. CALL LIGHT IN REACH. VSS. EASILY AROUSABLE.
[2023-04-21] MEDS ORDERED: AZITHROMYCIN 500 MG in SODIUM CHLORIDE 0.9% 250 ML IV ONE (14:00)
--- NOTE | 2023-04-21 14:25 | NUR ---
PT ADVISED OF CONTIUNED WAIT TIMES. PT VERBALIZED UNDERSTANDING. CALL LIGHT IN REACH. VSS
[2023-04-21 15:35] LABS: URINE BILIRUBIN - DIPSTICK Negative (NEGATIVE); URINE BLOOD DIPSTICK Small (NEGATIVE); URINE GLUCOSE - DIPSTICK Negative (NEGATIVE); URINE KETONE Trace mg/dL (NEGATIVE); URINE LEUK ESTERASE Negative (NEGATIVE); URINE PROTEIN - DIPSTICK 30 mg/dL (NEG-TRACE); URINE SPECIFIC GRAVITY 1.025; URINE UROBILINOGEN - DIPSTICK 0.2 E.U./dL (0.2)
[2023-04-21 15:43] LABS: URINE COLOR Yellow; URINE NITRITE - DIPSTICK Positive (Negative)
[2023-04-21 15:45] LABS: URINE BACTERIA MANY hpf; URINE RBC 0-2 RBC/hpf (0-5); URINE SQUAMOUS EPITHELIAL CELL FEW EPI/hpf (0-FEW); URINE WBC 0-2 WBC/hpf (0-5)
--- NOTE | 2023-04-21 15:45 | NUR ---
PT RESTING. EASILY AROUSABLE. VSS. CALL LIGHT IN REACH. FAMILY AT BEDSIDE
--- NOTE | 2023-04-21 16:30 | NUR ---
PT VSS. CALL LIGHT IN REACH. PT VERBALIZED NO NEEDS.
[2023-04-21] MEDS ORDERED: ACETAMINOPHEN 325 MG/TAB PO PRN (17:35)
[2023-04-21] MEDS ORDERED: MAGNESIUM HYDROXIDE 30 ML UDC PO PRN (17:35)
[2023-04-21] MEDS ORDERED: SODIUM CHLORIDE 0.9% 1,000 ML IV PRN (17:35)
--- NOTE | 2023-04-21 17:45 | NUR ---
PT PROVIDED A BLANKET. PT VERBALIZED NO FURTHER NEEDS. CALL LIGHT IN REACH.
--- NOTE | 2023-04-21 17:48 | NUR ---
REPORT ATTEMPTED TO [facility] NURSE.
[2023-04-21] MEDS ORDERED: KEPPRA500 M2 PO (17:58)
[2023-04-21] MEDS ORDERED: DEXAMETHASONE SOD. PHOSPHATE 10 MG/ML VIAL IV SCH (18:18)
--- NOTE | 2023-04-21 18:30 | NUR ---
PT IS ALERT. PT ADVISED OF CONTIUNED WAIT TIMES.
[2023-04-21] MEDS ORDERED: IPRATROPIUM-Albuterol 0.5MG-2.5MG/3 ML NEB SCH (19:00)
--- NOTE | 2023-04-21 19:10 | NUR ---
RECIEVED REPORT FROM ARIN CAZARES AT THIS TIME, PATIENT AWAITING ROOM ASSIGNMENT AND TRANSPORT TO [facility], PATIENT ALERT AND ORIENTED X4, UPDATED ON CONTINUOUS PLAN OF CARE, VSS.
--- NOTE | 2023-04-21 19:45 | NUR ---
REPORT CALLED TO ARIN LOPEZ ON MS2 AT THIS TIME. PATIENT AWAITING TRANSPORT TO MS[facility]. UPDATED ON CONTINUOUS PLAN OF CARE, WILL CONTINUE TO MONITOR, VOICES NO FURTHER QUESTIONS OR CONCERNS AT THIS TIME.
--- NOTE | 2023-04-21 20:15 | NUR ---
PT ARRIVED TO [facility] TO ROOM 269 FROM THE ER. NO DISTRESS NOTED DURING ASSESSMENT. VS WNL ON RA. IV SITE CHECKED AND FLUSHED. INSTRUCTED ON HOW TO USE CALL LIGHT. PT STATED UNDERSTANDING. SEIZURE PRECAUTIONS IN PLACE. CALL LIGHT WITHIN REACH. BED ALARM ON. PLAN OF CARE ONGOING.
--- NOTE | 2023-04-21 20:15 | NUR ---
PATIENT TRANSFERRED UPSTAIRS TO [facility] AT THIS TIME VIA W/C, PATIENT AMB TO BED, PATIENT ALERT AND ORIENTED X4, ORIENTED TO RM, CALL LIGHT PLACED IN REACH AT THIS TIME, NURSE AWARE OF PATIENT STATUS.
[2023-04-21] MEDS ORDERED: ENOXAPARIN SODIUM 40 MG/0.4 ML SYR SC SCH (21:00)
[2023-04-21] MEDS ORDERED: LevETIRAcetam 500 MG/TAB PO SCH (23:18)
[2023-04-21] MEDS ORDERED: PATIENT' OWN MED 1 EA DOSE PO PRN (23:20)
[2023-04-22 01:06] VITALS: BP 180/60
--- NOTE | 2023-04-22 04:17 | NUR ---
PT SLEEPING NO DISTRESS NOTED ON EXAM. CALL LIGHT WITHIN REACH. PLAN OF CARE ONGOING.
[2023-04-22 04:37] LABS: BASO% 0.2 % (0-3); HEMATOCRIT 39.8 % (37.0-47.0); HEMOGLOBIN 12.3 g/dl (12.0-16.0); IMMATURE GRANULOCYTES 0.8 % (0.0-5.0); MEAN CELL VOLUME 94.3 fL CALC (80.0-100.0); MEAN CORPUSCULAR HGB 29.1 pG CALC (26.0-32.0); MEAN CORPUSCULAR HGB CONC 30.9 g/dL CAL (32.0-36.0); MONO% 1.8 % (2-13); NEUT# 5.64 thou/uL (2.00-7.15); NEUT% 94.2 % (42-76); RED BLOOD COUNT 4.22 mill/uL (4.20-5.60); RED CELL DISTRI WIDTH 12.8 % (11.5-15.5)
[2023-04-22 04:53] VITALS: BP 145/71
[2023-04-22 04:56] LABS: ANION GAP 10 (6-22 (CALC)); BUN 7 mg/dL (8-23); BUN/CREATININE RATIO 15 (12-20 (CALC)); CARBON DIOXIDE 26 mmol/l (22-30); CHLORIDE 108 mmol/l (95-108); CREATININE 0.5 mg/dL (0.5-1.0); GFR FOR AFR.AMER. > 60 ML/MIN (>=60 (CALC)); GFR OTHER RACES > 60 ML/MIN (>=60 (CALC)); MAGNESIUM 1.8 mg/dL (1.6-2.3); POTASSIUM 3.8 mmol/l (3.5-5.1); SODIUM 140 mmol/l (137-146)
[2023-04-22 07:35] VITALS: BP 137/75
--- NOTE | 2023-04-22 07:42 | NUR ---
pt awake in bed; no apparent distress noted; pt offers no complaints; assessment completed at this time; pt alert and oriented; denies pain; no n/v noted; resp even and unlabored; lungs clear; skin color wnl; ra; hr reg; strong pulses; 2+ edema noted to ble; tele monitor intact; abd soft with bs present; no urine to inspect at this time; #20 to lac patent; call light within reach; will continue to monitor
[2023-04-22] MEDS ORDERED: REMDESIVIR 200 MG in SODIUM CHLORIDE 0.9% 210 ML IV SCH (09:00)
--- NOTE | 2023-04-22 10:54 | NUR ---
Tele neuro consult completed with Dr Stein; pt again instructed per this designer/writer to have family bring in lacosamide from home;
[2023-04-22 11:06] VITALS: BP 152/65
[2023-04-22] MEDS ORDERED: MAGNESIUM SULFATE HEPTAHYDRATE 50 ML IV SCH (12:00)
--- NOTE | 2023-04-22 12:00 | NUR ---
awake sitting at the side of the bed; offers no complaints; iv intact; call light within reach; will continue to monitor
[2023-04-22] MEDS ORDERED: VIMPAT200 MG PO ×2 (12:47→12:50)
[2023-04-22] MEDS ORDERED: OMNICEF300 M1 PO (13:38)
[2023-04-22] MEDS ORDERED: ROBITUSS22 PO (13:38)
[2023-04-22] MEDS ORDERED: MUCINEX600 MG PO (13:38)
[2023-04-22] MEDS ORDERED: ZPAK PO (13:38)
--- NOTE | 2023-04-22 14:50 | NUR ---
Discharge instructions given. Patient verbalizes understanding of same. Discharged in stable condition via Wheelchair to Home with family. All belongings sent with pt.
[2023-04-22] MEDS ORDERED: LevETIRAcetam 500 MG/TAB PO SCH (19:00)
[2023-04-22] MEDS ORDERED: AZITHROMYCIN 500 MG in SODIUM CHLORIDE 0.9% 250 ML IV SCH (20:00)
[2023-04-23] MEDS ORDERED: REMDESIVIR 100 MG in SODIUM CHLORIDE 0.9% 230 ML IV SCH (09:00)
== END 2023-04-22 15:50 | disposition home or self-care (01) ==
LOC: ED 12:13 → ED-I 13:09 → ED 17:26 → MS2 17:27
PROVIDERS: Nurse Practitioner; ADMIT Student in an Organized Health Care Education/Training Program; ATTEND Student in an Organized Health Care Education/Training Program
DX: U07.1 COVID-19 (principal); J12.82 Pneumonia due to coronavirus disease 2019; N39.0 Urinary tract infection, site not specified; B96.89 Other specified bacterial agents as the cause of diseases classified elsewhere; R09.02 Hypoxemia; E04.2 Nontoxic multinodular goiter; G40.909 Epilepsy, unspecified, not intractable, without status epilepticus; M06.9 Rheumatoid arthritis, unspecified; Z91.81 History of falling; Z96.641 Presence of right artificial hip joint; Z86.011 Personal history of benign neoplasm of the brain
CPT/HCPCS: J1650; J3475; Q9967